=== PATIENT | male | born 1980 | race Two or more races ===

== ENCOUNTER 2018-02-02 22:59 | Emergency (ER) | payer OTHER ==
[2018-02-03] MEDS: CEPHALEXIN 500 MG CAP PO (00:47)
[2018-02-03] MEDS: HYDROCODONE/APAP (5/325) TAB PO (00:47)
[2018-02-03] MEDS: DIPHTH/TET/ACEL PERTUSS (ADULT) 0.5 ML VIAL IM (00:48)
== END 2018-02-03 01:17 | disposition home or self-care (01) ==
LOC: FTE 22:59
DX: S61.011A Laceration without foreign body of right thumb without damage to nail, initial encounter (principal); W26.8XXA Contact with other sharp object(s), not elsewhere classified, initial encounter; Y92.9 Unspecified place or not applicable; Z23 Encounter for immunization; Z87.891 Personal history of nicotine dependence
CPT/HCPCS: 90471; 90715; 99283-25